=== PATIENT | female | born 1965 | race Caucasian/White ===

== ENCOUNTER 2017-05-26 21:47 | Emergency (ER) | payer OTHER ==
[2017-05-26 21:53] VITALS: TEMP 97.7; BMI 25.0
--- NOTE | 2017-05-26 22:20 | PDOC ---
History of Present Illness - General History Source: Patient Exam Limitations: No Limitations - History of Present Illness Initial Comments: The patient is 52 yo F with no significant PMHx who presents because she wanted to get her BP check. The patient states her daughter took her own BP so the patient wanted to get her BP check as well. At this time, the patient has no complaints. The patient denies chest pain, shortness of breath and headache. The patient denies palpitations and lightheadedness. The patient denies nausea , vomiting, diarrhea and abdominal pain. Social Hx: Social ETOH use Allergies: NKDA <Carmen Lagos - Last Filed: 05/26/17 23:48> - General History Source: Patient <Jose Lozano - Last Filed: 05/26/17 23:51> - General Chief Complaint: Blood Pressure Problem Stated Complaint: Blood Pressure Problem Time Seen by Provider: 05/26/17 22:14 Past History <Carmen Lagos - Last Filed: 05/26/17 23:48> - Surgical History Abdominal Surgery: Yes - Psycho/Social/Smoking Cessation Hx Anxiety: No Suicidal Ideation: No Smoking Status: No Smoking History: Never smoked Number of Cigarettes Smoked Daily: 0 Hx Alcohol Use: No Substance Use Type: None <JonathanashwinJose - Last Filed: 05/26/17 23:51> - Past Medical History Allergies/Adverse Reactions: Allergies Allergy/AdvReac Type Severity Reaction Status Date / Time No Known Allergies Allergy Verified 05/26/17 21:52 Home Medications: Ambulatory Orders Aspirin [ASA -] 81 mg PO DAILY 05/26/17 Review of Systems - Review of Systems Able to Perform ROS?: Yes Comments:: CONSTITUTIONAL: Absent: fever, no chills, no fatigue EYES: Absent: visual changes ENT: Absent: ear pain, no sore throat CARDIOVASCULAR: Absent: chest pain, no palpitations RESPIRATORY: Absent: cough, no SOB GI: Absent: abdominal pain, no nausea, no vomiting, no constipation, no diarrhea GENITOURINARY: Absent: dysuria, no frequency, no hematuria MUSKULOSKELETAL: Absent: back pain, no arthralgia, no myalgia SKIN: Absent: rash <Carmen Lagos - Last Filed: 05/26/17 23:48> *Physical Exam - Vital Signs Last Vital Signs Temp Pulse Resp BP Pulse Ox 97.7 F 86 16 170/92 100 05/26/17 21:52 05/26/17 21:52 05/26/17 21:52 05/26/17 21:52 05/26/17 21:52 - Physical Exam Comments: GENERAL: Well-appearing, well-nourished. No apparent distress. HEENT: Normocephalic, atraumatic. PERRL, EOM intact. CARDIOVASCULAR: Normal S1, S2. Regular rate and rhythm. PULMONARY: Clear to auscultation bilaterally. ABDOMEN: Soft, non-distended, non-tender. EXTREMITIES: Normal ROM in all four extremities. No gross deformities. SKIN: Warm, dry. No rash NEUROLOGICAL: No focal neurological deficits. <Carmen Lagos - Last Filed: 05/26/17 23:48> - Vital Signs Last Vital Signs Temp Pulse Resp BP Pulse Ox 97.7 F 86 16 170/92 100 05/26/17 21:52 05/26/17 21:52 05/26/17 21:52 05/26/17 21:52 05/26/17 21:52 <Jose Lozano - Last Filed: 05/26/17 23:51> Heart Score/ECG Review #1 NSR @ 69 bpm. Possible L atrial enlargement. Borderline ECG. <Carmen Lagos - Last Filed: 05/26/17 23:48> ED Treatment Course - LABORATORY CBC & Chemistry Diagram: 05/26/17 22:24 05/26/17 22:24 <Carmen Lagos - Last Filed: 05/26/17 23:48> - LABORATORY CBC & Chemistry Diagram: 05/26/17 22:24 05/26/17 22:24 <Jose Lozano - Last Filed: 05/26/17 23:51> Medical Decision Making - Medical Decision Making 05/26/17 23:47 Dr. Lozano: The scribe's documentation has been prepared under my direction and personally reviewed by me in its entirery. I confirm that the note above accurately reflects all work, treatment, procedures, and medical decision making performed by me. <Jose Lozano - Last Filed: 05/26/17 23:51> *DC/Admit/Observation/Transfer - Attestations Scribe Attestion: Documentation prepared by Carmen Lagos, acting as medical information specialist for Jose Lozano MD/. <Carmen Lagos - Last Filed: 05/26/17 23:48> - Discharge Dispostion Admit: No <Jose Lozano - Last Filed: 05/26/17 23:51> Diagnosis at time of Disposition: General medical exam - Discharge Dispostion Disposition: HOME Condition at time of disposition: Stable - Referrals Referrals: STAFF,NOT ON [Primary Care Provider] - Irvin Rico MD [Staff Physician] - - Patient Instructions Printed Discharge Instructions: DI for Physical Exam -- Adult Print Language: MACEDONIAN
[2017-05-26 22:36] LABS: BASOPHIL 0.6 % (0-2.0); EOSINOPHIL 3.3 % (0-4.5); MCH 31.2 pg (25.7-33.7); MCHC 33.1 g/dl (32.0-36.0); MEAN CELL VOLUME 94.2 fl (80-96); MEAN PLT VOLUME 7.8 fl (7.5-11.1); NEUTROPHILS 53.3 % (42.8-82.8); PLATELET COUNT 251 K/MM3 (134-434); RDW 12.7 % (11.6-15.6); WHITE BLOOD COUNT 5.3 K/mm3 (4.0-10.0)
[2017-05-26 22:40] VITALS: BP 134/62; PULSE 82
[2017-05-26 22:42] LABS: URINE APPEARANCE CLEAR; URINE BILIRUBIN NEGATIVE (NEGATIVE); URINE BLOOD 1+ (NEGATIVE); URINE COLOR STRAW; URINE GLUCOSE (UA) NEGATIVE (NEGATIVE); URINE KETONE NEGATIVE (NEGATIVE); URINE NITRITE NEGATIVE (NEGATIVE); URINE PROTEIN NEGATIVE (NEGATIVE); URINE UROBILINOGEN NEGATIVE mg/dL (0.2-1.0)
[2017-05-26 22:57] LABS: URINE LEUK ESTERASE 1+ (NEGATIVE)
[2017-05-26 23:08] LABS: URINE BACTERIA MODERATE /hpf (NONE SEEN); URINE RBC 1 /hpf (0-3); URINE WBC 8 /hpf (3-5)
[2017-05-26 23:08] LABS: ALBUMIN 3.8 g/dl (3.4-5.0); ALK PHOS 93 U/L (45-117); ANION GAP 7 (8-16); BILIRUBIN,TOTAL 0.3 mg/dL (0.2-1.0); CALCIUM 8.9 mg/dL (8.5-10.1); CO2 28 mmol/L (21-32); CREATININE 0.7 mg/dL (0.55-1.02); GLUCOSE,RANDOM 88 mg/dL (74-106); SGOT/AST 18 U/L (15-37); SGPT/ALT 18 U/L (12-78); TOT PROT 7.6 g/dl (6.4-8.2)
--- NOTE | 2017-05-27 16:35 | EKG ---
Test Reason : Blood Pressure : / mmHG Vent. Rate : 069 BPM Atrial Rate : 069 BPM P-R Int : 152 ms QRS Dur : 090 ms QT Int : 408 ms P-R-T Axes : 054 000 022 degrees QTc Int : 437 ms NORMAL SINUS RHYTHM POSSIBLE LEFT ATRIAL ENLARGEMENT BORDERLINE ECG WHEN COMPARED WITH ECG OF 13-MAY-2015 17:15, NO SIGNIFICANT CHANGE WAS FOUND Confirmed by YESICA HAN MD ([id number]) on 05/27/2017 4:35:18 PM Referred By: Confirmed By:YESICA HAN MD
== END 2017-05-26 23:55 | disposition home or self-care (01) ==
LOC: JER 21:47
DX: Z01.89 Encounter for other specified special examinations (principal)
CPT/HCPCS: 36415; 80053; 81003; 81015; 85025; 93005; 93010; 99285-25

== ENCOUNTER 2019-01-26 04:07 | Emergency (ER) | payer OTHER ==
--- NOTE | 2019-01-26 04:39 | PDOC ---
Medical Decision Making - Medical Decision Making 01/26/19 04:38 Patient seen by the advanced practice provider under my direct supervision. Ancillary testing reviewed as necessary. I agree with plan as outlined by the advanced practice provider. *DC/Admit/Observation/Transfer Diagnosis at time of Disposition: Influenza A - Discharge Dispostion Disposition: HOME Condition at time of disposition: Fair - Prescriptions Prescriptions: Oseltamivir Phosphate [Tamiflu -] 75 mg PO BID #10 capsule - Referrals - Patient Instructions Additional Instructions: Rest, drink lots of fluids: Teas, water, soups, Pedialyte Saltwater gargles Steamy showers/seem to face break up mucus Old-fashioned treatments help! Avoid contact with others until fevers and cough resolved as this is very contagious Lots of handwashing and good hygiene Continue [id number] medications for symptomatic relief Tylenol or Motrin for fever and pain Take all of Tamiflu as directed: 1 tab every 12 hours for 5 days Followup with private physician in one to 2 days as needed or if worsening Return to emergency department for worsened symptoms, fevers, dehydration Influenza takes between 5 and 7 days for resolution To not participate in any activity, work, or school until fevers and cough are gone for at least one day [place], tome muchos lquidos: Ts, agua, sopas, Pedialyte Gargantas de agua salada Duchas de vapor / parece que se enfrentan a moco roto Los tratamientos anticuados ayudan! Evite el contacto con los dems hasta que la fiebre y la tos se resuelvan, ya que esto es muy contagioso. Mucho lavado de leslie y buena higiene. Continuar con los medicamentos de venta gaurang para el alivio sintomtico. Tylenol o Motrin para la fiebre y el dolor. [place] [facility] todo el Tamiflu nishi se indica: 1 pestaa cada 12 horas doc 5 bueno Seguimiento con un mdico privado en 1 a 2 bueno segn sea necesario o si empeora. Volver al servicio de urgencias para los sntomas empeorados, fiebres, deshidratacin. La gripe tarda entre 5 y 7 bueno en resolverse No participar en ninguna actividad, trabajo o escuela hasta que la fiebre y la tos hayan desaparecido por lo menos doc un da. - Post Discharge Activity Forms/Work/School Notes: Back to Work
[2019-01-26] MEDS ORDERED: ACETAMINOPHEN 500 MG TABLET (FP) PO ONE (05:05)
--- NOTE | 2019-01-26 05:06 | PDOC ---
History of Present Illness - General Stated Complaint: Fever, cough & sore throat Time Seen by Provider: 01/26/19 04:36 History Source: Patient Exam Limitations: No Limitations - History of Present Illness Initial Comments: 01/26/19 05:03 HISTORY OF PRESENT ILLNESS: 53-year-old woman denies medical history presents emergency department for evaluation of fevers, bitemporal headache, sore throat , moist productive cough which started yesterday. Patient states she felt better after drinking lots of fluid and taking Motrin. She reported the symptoms came back approximately 6 hours after taking the Motrin but she did not take any more medication and she did not have any in the house. Patient states her was recently treated for the flu and was expressing similar symptoms. Patient denies any chest pain, abdominal pain, nausea, vomiting, dysuria, hematuria, rectal bleeding, diarrhea, blurry vision, dizziness. No recent travel. PAST MEDICAL HISTORY: Denies past medical history SURGICAL HISTORY: Denies ALLERGIES: No known drug allergies REVIEW OF SYSTEMS General/Constitutional: +fever. Denies weakness, weight change. HEENT: Denies change in vision. Denies ear pain or discharge. +sore throat. Cardiovascular: Denies chest pain or shortness of breath. Respiratory: Moist productive cough. Denies wheezing, or hemoptysis. Gastrointestinal: Denies nausea, vomiting, diarrhea or constipation. Denies rectal bleeding. Genitourinary: Denies dysuria, frequency, or change in urination. Musculoskeletal: +myalgias. Denies neck or back pain. Skin and breasts: Denies rash or easy bruising. Neurologic: Denies headache, vertigo, loss of consciousness, or loss of sensation. Psychiatric: Denies depression or anxiety. Endocrine: Denies increased thirst. Denies abnormal weight change. Hematologic/Lymphatic: Denies anemia, easy bleeding, or history of blood clots. Allergic/Immunologic: Denies hives or skin allergy. Denies latex allergy. PHYSICAL EXAM General Appearance: Well-appearing, appropriately dressed. No apparent distress , no intoxication. HEENT: EOMI, PERRLA, normal voice, TMs retracted bilaterally. No conjunctival pallor. No photophobia, scleral icterus. Oropharynx erythematous without lesions or exudate. Cobblestoning noted in the posterior. No nasal discharge present. Neck: Supple. Trachea midline. No tenderness, rigidity, carotid bruit, stridor , or thyromegaly. Nontender anterior cervical lymphadenopathy present. Respiratory/Chest: Lungs CTAB. No shortness of breath, chest tenderness, respiratory distress, accessory muscle use. No crackles, rales, rhonchi, stridor , wheezing, dullness Cardiovascular: RRR. S1, S2. No JVD, murmur, bradycardia, tachycardia. Vascular Pulses: Dorsalis-Pedis (R): 2+, Dorsalis-Pedis (L): 2+ Gastrointestinal/Abdominal: Normal bowel sounds. Abdomen soft, non-distended. No tenderness or rebound tenderness. No organomegaly, pulsatile mass, guarding, hernia, hepatomegaly, splenomegaly. Musculoskeletal/Extremities: Normal inspection. FROM of all extremities, normal capillary refill. Pelvis Stable. No CVA tenderness. No tenderness to extremities, pedal edema, swelling, erythema or deformity. Integumentary: Appropriate color, dry, warm. No cyanosis, erythema, jaundice or rash Neurologic: clip riveter II-XII intact. Fully oriented, alert. Appropriate mood/affect. Motor strength 5/5. No appreciable EOM palsy, facial droop or sensory deficit. 01/26/19 05:54 Past History - Past Medical History Allergies/Adverse Reactions: Allergies Allergy/AdvReac Type Severity Reaction Status Date / Time No Known Allergies Allergy Verified 01/26/19 05:01 Home Medications: Ambulatory Orders Aspirin [ASA -] 81 mg PO DAILY 05/26/17 Oseltamivir Phosphate [Tamiflu -] 75 mg PO BID #10 capsule 01/26/19 - Surgical History Abdominal Surgery: Yes - Suicide/Smoking/Psychosocial Hx Smoking Status: No Smoking History: Never smoked Have you smoked in the past 12 months: No Number of Cigarettes Smoked Daily: 0 Information on smoking cessation initiated: No Hx Alcohol Use: No Drug/Substance Use Hx: No Substance Use Type: None *Physical Exam - Vital Signs Last Vital Signs Temp Pulse Resp BP Pulse Ox 101.8 F H 113 H 18 140/73 100 01/26/19 04:07 01/26/19 04:07 01/26/19 04:07 01/26/19 04:07 01/26/19 04:07 Moderate Sedation - Procedure Monitoring Vital Signs: Procedure Monitoring Vital Signs Temperature 101.8 F H 01/26/19 04:07 Pulse Rate 113 H 01/26/19 04:07 Respiratory Rate 18 01/26/19 04:07 Blood Pressure 140/73 01/26/19 04:07 O2 Sat by Pulse Oximetry (%) 100 01/26/19 04:07 Medical Decision Making - Medical Decision Making 01/26/19 05:05 A/P: 53-year-old woman 1 day of influenza-like illness Influenza testing Tylenol 1 g orally now Reassess 01/26/19 05:51 Patient is positive for influenza A. I will discharge the patient with a prescription for Tamiflu have instructed for supportive treatment. Patient is verbalized understanding of discharge instructions was satisfied with the care today. *DC/Admit/Observation/Transfer Diagnosis at time of Disposition: Influenza A - Discharge Dispostion Disposition: HOME Condition at time of disposition: Fair Decision to Admit order: No - Prescriptions Prescriptions: Oseltamivir Phosphate [Tamiflu -] 75 mg PO BID #10 capsule - Referrals - Patient Instructions Additional Instructions: Rest, drink lots of fluids: Teas, water, soups, Pedialyte Saltwater gargles Steamy showers/seem to face break up mucus Old-fashioned treatments help! Avoid contact with others until fevers and cough resolved as this is very contagious Lots of handwashing and good hygiene Continue [id number] medications for symptomatic relief Tylenol or Motrin for fever and pain Take all of Tamiflu as directed: 1 tab every 12 hours for 5 days Followup with private physician in one to 2 days as needed or if worsening Return to emergency department for worsened symptoms, fevers, dehydration Influenza takes between 5 and 7 days for resolution To not participate in any activity, work, or school until fevers and cough are gone for at least one day [place], tome muchos lquidos: Ts, agua, sopas, Pedialyte Gargantas de agua salada Duchas de vapor / parece que se enfrentan a moco roto Los tratamientos anticuados ayudan! Evite el contacto con los dems hasta que la fiebre y la tos se resuelvan, ya que esto es muy contagioso. Mucho lavado de leslie y buena higiene. Continuar con los medicamentos de venta gaurang para el alivio sintomtico. Tylenol o Motrin para la fiebre y el dolor. [place] todo el Tamiflu nishi se indica: 1 pestaa cada 12 horas doc 5 bueno Seguimiento con un mdico privado en 1 a 2 bueno segn sea necesario o si empeora. Volver al servicio de urgencias para los sntomas empeorados, fiebres, deshidratacin. La gripe tarda entre 5 y 7 bueno en resolverse No participar en ninguna actividad, trabajo o escuela hasta que la fiebre y la tos hayan desaparecido por lo menos doc un da. - Post Discharge Activity Forms/Work/School Notes: Back to Work
[2019-01-26] MEDS ORDERED: ACETAMINOPHEN 325 MG TABLET (FP) ONE (05:20)
[2019-01-26 06:26] VITALS: BP 140/73; PULSE 113; TEMP 101.8; BMI 28.8
[2019-01-28] MEDS ORDERED: MECLIZINE HCL 25 MG TABLET (FP) ONE (22:11)
== END 2019-01-26 06:04 | disposition home or self-care (01) ==
LOC: JER 04:07
DX: J09.X2 Influenza due to identified novel influenza A virus with other respiratory manifestations (principal)
CPT/HCPCS: 87804; 99282-25

== ENCOUNTER 2019-04-21 12:45 | Emergency (ER) | payer OTHER | END 2019-04-21 14:00 | disposition home or self-care (01) | LOC: JERFT 12:45 ==